=== PATIENT | male | born 1980 | race Caucasian/White ===

== ENCOUNTER 2018-11-21 19:41 | Emergency (ER) | payer BC, OTHER, SELFPAY ==
[2018-11-21] MEDS ORDERED: Sodium Chloride 0.9% 10 ML Syringe FLUSH PRN (20:08)
[2018-11-21] MEDS ORDERED: Sodium Chloride 0.9% 1,000 ML IV ONE (20:08)
[2018-11-21] MEDS ORDERED: Ondansetron 4 MG/2 ML SDV IVPUSH ONE (20:08)
[2018-11-21] MEDS ORDERED: Albuterol/Ipratropium 3.0-0.5 MG/3 ML Neb Soln NEB ONE (20:13)
[2018-11-21] MEDS ORDERED: Ketorolac 30 MG/ML SDV IVPUSH ONE (20:17)
[2018-11-21 20:27] VITALS: BP 137/78
[2018-11-21] MEDS ORDERED: cefTRIAXone 2 GM Vial IVPUSH ONE (20:38)
--- NOTE | 2018-11-21 21:04 | EDM.PDOC ---
ED HPI GENERAL MEDICAL PROBLEM - General Chief Complaint: Gastrointestinal Problem Stated Complaint: N/V/D; URI symptoms Time Seen by Provider: 11/21/18 19:42 Source of Information: Reports: Patient, RN, RN Notes Reviewed History Limitations: Reports: No Limitations - History of Present Illness INITIAL COMMENTS - FREE TEXT/NARRATIVE: Patient presents to the ED at [facility] complaining of URI symptoms, productive cough for the past week. Patient states he has a sore throat. Patient started having N/V/D last evening. He has been unable to keep fluids down. He states he feels very thirsty and dehydrated. Patient denies any eye or ear symptoms. No sinus pressure or pain. Patient has not taken any OTC medications. He complains of fevers and chills. Patient is coughing up green/ yellow appearing purulent sputum. No close family members or contacts with similar symptoms. Onset Date: 11/14/18 Throat Pain Score (Numeric/FACES): 7 - Related Data Allergies Allergy/AdvReac Type Severity Reaction Status Date / Time No Known Allergies Allergy Verified 11/21/18 20:12 Home Meds: Home Meds Multivitamin [Gummi Bear Multivitamin] 1 each PO DAILY 11/14/16 [History] Amoxicillin/Clavulanate K [Augmentin 875-125 MG] 1 tab PO BID 10 Days #20 tablet 11/21/18 [Rx] Oseltamivir Phosphate 75 mg PO BID 4 Days #8 capsule 11/21/18 [Rx] Past Medical History - Past Health History Medical/Surgical History: Denies Medical/Surgical History - Past Surgical History Musculoskeletal Surgical History: Reports: Other (See Below) Other Musculoskeletal Surgeries/Procedures:: neck surgery Social & Family History - Tobacco Use Smoking Status *Q: Current Every Day Smoker Years of Tobacco use: 20 Packs/Tins Daily: 0.5 - Recreational Drug Use Recreational Drug Use: No ED ROS GENERAL - Review of Systems Review Of Systems: See Below Constitutional: Reports: Fever, Chills, Weakness HEENT: Reports: Throat Pain. Denies: Ear Pain, Eye Pain Respiratory: Reports: Shortness of Breath, Cough, Sputum Cardiovascular: Denies: Chest Pain, Palpitations GI/Abdominal: Reports: Diarrhea, Nausea, Vomiting. Denies: Abdominal Pain Skin: Reports: No Symptoms Neurological: Reports: No Symptoms ED EXAM, GI/ABD - Physical Exam Exam: See Below Exam Limited By: No Limitations General Appearance: Alert, No Apparent Distress Ears: Normal External Exam, Normal Canal, Normal TMs Nose: Normal Inspection Throat/Mouth: Other (posterior oropharynx erythematous without exudate) Neck: Supple Respiratory/Chest: Decreased Breath Sounds, Crackles, Rhonchi, Wheezing Cardiovascular: Normal Peripheral Pulses, Regular Rate, Rhythm, No Edema GI/Abdominal Exam: Normal Bowel Sounds, Soft, Non-Tender Neurological: Alert, Oriented Skin Exam: Warm, Dry, Intact, Normal Color Course - Vital Signs Last Recorded V/S: Last Vital Signs Temp 39.1 C H 11/21/18 19:50 Pulse 96 11/21/18 19:50 Resp 16 11/21/18 19:50 BP 137/78 11/21/18 19:50 Pulse Ox 97 11/21/18 19:50 - Orders/Labs/Meds Orders: Active Orders 24 hr Category Date Time Status RT Aerosol Therapy [RC] ASDIRECTED Care 11/21/18 20:13 Active Chest 2V [CR] Stat Exams 11/21/18 20:25 Taken CULTURE BLOOD [BC] Stat Lab 11/21/18 20:41 Received CULTURE BLOOD [BC] Stat Lab 11/21/18 20:46 Results LACTIC ACID [CHEM] Stat Lab 11/21/18 20:41 Received UA RFX DOT AND CULT IF INDIC [URIN] Stat Lab 11/21/18 20:07 Ordered Sodium Chloride 0.9% [Saline Flush] Med 11/21/18 20:08 Active 10 ml FLUSH ASDIRECTED PRN Blood Culture x2 Reflex Set [OM.PC] Stat Oth 11/21/18 20:07 Ordered Peripheral IV Insertion Adult [OM.PC] Routine Oth 11/21/18 20:08 Ordered Medication Orders Sodium Chloride (Saline Flush) 10 ml FLUSH ASDIRECTED PRN PRN Reason: Keep Vein Open Labs: Laboratory Tests 11/21/18 11/21/18 Range/Units 20:41 20:41 WBC 8.7 (4.0-10.0) x10^3/uL RBC 4.45 L (4.5-6.0) x10^6/uL Hgb 14.3 (14.0-18.0) g/dL Hct 41.6 (40.0-52.0) % MCV 93.5 H (78.0-93.0) fL MCH 32.1 H (26.0-32.0) pg MCHC 34.4 (32.0-36.0) g/dL RDW Coeff of Conner 13.7 (10.0-15.0) % Plt Count 219 (130-400) x10^3/uL Neut % (Auto) 88.7 H (50.0-80.0) % Lymph % (Auto) 8.1 L (25.0-50.0) % [place] % (Auto) 2.4 (2.0-11.0) % Eos % (Auto) 0.8 (0.0-4.0) % Baso % (Auto) 0.0 L (0.2-1.2) % Sodium 141 (136-145) mmol/L Potassium 3.4 L (3.5-5.1) mmol/L Chloride 104 (98-107) mmol/L Carbon Dioxide 25 (21-32) mmol/L Anion Gap 15.4 (10-20) mmol/L BUN 9 (7-18) mg/dL Creatinine 1.0 (0.70-1.30) mg/dL Est Cr Clr Drug Dosing 88.61 mL/min Estimated GFR (MDRD) > 60 Glucose 138 H (74-106) mg/dL Calcium 8.7 (8.5-10.1) mg/dL Corrected Calcium 8.78 (8.5-10.1) mg/dL Total Bilirubin 1.0 (0.2-1.0) mg/dL AST 32 (15-37) U/L ALT 40 (16-63) U/L Alkaline Phosphatase 91 (46-116) U/L C-Reactive Protein 5.8 H (<=0.9) mg/dL Total Protein 7.7 (6.4-8.2) g/dL Albumin 3.9 (3.4-5.0) g/dL Globulin 3.8 Albumin/Globulin Ratio 1.03 Meds: Medications Generic Name Dose Route Start Last Admin Trade Name Freq PRN Reason Stop Dose Admin Sodium Chloride 10 ml 11/21/18 20:08 Saline Flush FLUSH ASDIRECTED PRN Keep Vein Open Discontinued Medications Generic Name Dose Route Start Last Admin Trade Name Freq PRN Reason Stop Dose Admin Albuterol/Ipratropium 3 ml 11/21/18 20:13 11/21/18 20:16 Duoneb 3.0-0.5 Mg/3 Ml NEB 11/21/18 20:14 3 ml ONETIME ONE Administration Ceftriaxone Sodium 2 gm 11/21/18 20:38 11/21/18 20:40 Rocephin IVPUSH 11/21/18 20:39 2 gm STAT ONE Administration Sodium Chloride 1,000 mls @ 999 mls/hr 11/21/18 20:08 11/21/18 20:05 Normal Saline IV 11/21/18 21:08 999 mls/hr ONETIME ONE Administration Ketorolac Tromethamine 30 mg 11/21/18 20:17 11/21/18 20:24 Toradol IVPUSH 11/21/18 20:18 30 mg ONETIME ONE Administration Ondansetron HCl 4 mg 11/21/18 20:08 11/21/18 20:14 Zofran IVPUSH 11/21/18 20:09 4 mg ONETIME ONE Administration - Radiology Interpretation Free Text/Narrative:: CXR: Right Lower Lobe Pneumonia See scanned report in EMR for details Departure - Departure Time of Disposition: 21:34 Disposition: Home, Self-Care 01 Condition: Good Clinical Impression: Influenza A, Acute streptococcal pharyngitis Pneumonia Qualifiers: Pneumonia type: due to unspecified organism Laterality: right Lung location: lower lobe of lung Qualified Code(s): J18.1 - Lobar pneumonia, unspecified organism - Discharge Information *PRESCRIPTION DRUG MONITORING PROGRAM REVIEWED*: Not Applicable *COPY OF PRESCRIPTION DRUG MONITORING REPORT IN PATIENT JOSE MARIA: Not Applicable Prescriptions: Amoxicillin/Clavulanate K [Augmentin 875-125 MG] 1 tab PO BID 10 Days #20 tablet Oseltamivir Phosphate 75 mg PO BID 4 Days #8 capsule Instructions: Influenza, Adult, Community-Acquired Pneumonia, Adult, Strep Throat Referrals: PCP,None [Primary Care Provider] - Forms: ED Department Discharge Additional Instructions: 1. Stay very well hydrated and rest 2. Get your medications filled at the pharmacy tomorrow 3. Take antibiotics for the full coarse, even if you are feeling better 4. Cover your cough 5. Wash hands frequently 6. Change out and buy a new toothbrush 7. Do warm salt water gargles 8. See your PCP later this week to make sure everything is resolving 9. Call us with any questions or concerns - Problem List Review Problem List Initiated/Reviewed/Updated: Yes - My Orders Last 24 Hours: My Active Orders 11/21/18 20:07 UA RFX DOT AND CULT IF INDIC [URIN] Stat Blood Culture x2 Reflex Set [OM.PC] Stat 11/21/18 20:08 Sodium Chloride 0.9% [Saline Flush] 10 ml FLUSH ASDIRECTED PRN Peripheral IV Insertion Adult [OM.PC] Routine 11/21/18 20:13 RT Aerosol Therapy [RC] ASDIRECTED 11/21/18 20:25 Chest 2V [CR] Stat 11/21/18 20:41 CULTURE BLOOD [BC] Stat LACTIC ACID [CHEM] Stat 11/21/18 20:46 CULTURE BLOOD [BC] Stat - Assessment/Plan Last 24 Hours: My Active Orders 11/21/18 20:07 UA RFX DOT AND CULT IF INDIC [URIN] Stat Blood Culture x2 Reflex Set [OM.PC] Stat 11/21/18 20:08 Sodium Chloride 0.9% [Saline Flush] 10 ml FLUSH ASDIRECTED PRN Peripheral IV Insertion Adult [OM.PC] Routine 11/21/18 20:13 RT Aerosol Therapy [RC] ASDIRECTED 11/21/18 20:25 Chest 2V [CR] Stat 11/21/18 20:41 CULTURE BLOOD [BC] Stat LACTIC ACID [CHEM] Stat 11/21/18 20:46 CULTURE BLOOD [BC] Stat Assessment:: RLL Pneumonia Influenza A Streptococcal Pharyngitis Plan: Labs and xray were discussed with the patient. Admission was highly recommend but patient declined stating "I have 2 kids at home to take care of." Risks of not being admitted thoroughly discussed. Patient will be started on Tamiflu and Augmentin. SE discussed.
[2018-11-21 21:18] LABS: CHLORIDE,CL 104 mmol/L (98-107); SODIUM,NA 141 mmol/L (136-145)
[2018-11-21 21:19] LABS: ANION GAP 15.4 mmol/L (10-20)
[2018-11-21] MEDS ORDERED: Take Home: Oseltamivir 75 MG Cap, 2 Cap Pack PO ONE (21:38)
--- NOTE | 2018-11-22 08:31 | CR ---
[id number] RAD/RAD Chest PA And Lateral EXAM: RAD Chest PA And Lateral CLINICAL DATA: SHORTNESS OF BREATH. FEVER. COMPARISON: NO PREVIOUS SIMILAR EXAM IS AVAILABLE. FINDINGS: An abnormal interstitial pattern is seen. The cardiac silhouette is mildly prominent. There are surgical changes of the cervical spine. A slight scoliosis is identified. IMPRESSION: ABNORMAL INTERSTITIAL PATTERN. CONSIDER VIRAL PNEUMONIA OR ATYPICAL PNEUMONIA. Teddy Masters MD 11/22/18 0827 Thank you for allowing us to participate in the care of your patient.
== END 2018-11-21 22:10 | disposition home or self-care (01) ==
LOC: VM.ED 19:41
DX: J18.1 Lobar pneumonia, unspecified organism (principal); J10.1 Influenza due to other identified influenza virus with other respiratory manifestations; F17.210 Nicotine dependence, cigarettes, uncomplicated; Z79.899 Other long term (current) drug therapy
CPT/HCPCS: 36415; 71046; 80053; 81003; 83605; 85025; 86140; 87040; 87804; 87804-59; 87880-QW; 94640; 96361; 96374; 96375; 99284; A9270-GY; J0696; J1885; J2405; J7030; J7620-GY

== ENCOUNTER 2022-10-11 19:27 | Emergency (ER) | payer BC ==
[2022-10-11] MEDS ORDERED: Acetaminophen 500 MG Tab PO ONE (20:47)
[2022-10-11 21:02] LABS: CORONAVIRUS COVID-19 NAA NEGATIVE (NEGATIVE); RESPIRATORY SYNCYTIAL VIR NAA POSITIVE (NEGATIVE)
[2022-10-11] MEDS ORDERED: Take Home: predniSONE 20 MG, 2 Tab Pack PO ONE (21:09)
[2022-10-11] MEDS ORDERED: Take Home: Albuterol 18 GM Inhaler, 1 Inhaler Pack INH PRN (21:10)
[2022-10-11] MEDS ORDERED: Take Home: Codeine/Promethazine 10-6.25 MG/5 ML Syrup 5 ML, 2 Cup Pack PO ONE (21:10)
[2022-10-12 02:27] VITALS: BP 141/85; PULSE 106
== END 2022-10-11 21:40 | disposition home or self-care (01) ==
LOC: VM.ED 19:27
DX: R05.9 Cough, unspecified (principal); B97.4 Respiratory syncytial virus as the cause of diseases classified elsewhere; Z79.899 Other long term (current) drug therapy; Z20.822 Contact with and (suspected) exposure to COVID-19
CPT/HCPCS: 0241U; 71045; 99283; 99284; A9270-GY; J7512

== ENCOUNTER 2025-08-20 18:26 | Emergency (ER) | payer BC, OTHER ==
[2025-08-20 18:52] VITALS: BP 141/95; PULSE 84
[2025-08-20] MEDS: Take Home: Cyclobenzaprine 10 MG Tab, 4 Tab Pack PO ONE (18:53)
== END 2025-08-20 19:07 | disposition home or self-care (01) ==
LOC: VM.ED 18:26
DX: M54.42 Lumbago with sciatica, left side (principal); E78.00 Pure hypercholesterolemia, unspecified; F17.200 Nicotine dependence, unspecified, uncomplicated; Z79.899 Other long term (current) drug therapy
CPT/HCPCS: 99283; 99284; A9270-GY